=== PATIENT | female | born 1995 | race Caucasian/White ===

== ENCOUNTER 2020-04-27 22:47 | Emergency (ER) | payer BC ==
[~2020-04-27] VITALS: Ht 162.6 cm; Wt 62.6 kg
[2020-04-27 22:55] VITALS: Ht 162.6 cm; Wt 62.6 kg
[2020-04-27 23:49] VITALS: BP 113/71
== END 2020-04-27 23:49 | disposition home or self-care (01) ==
LOC: ED 22:47
DX: T20.06XA Burn of unspecified degree of forehead and cheek, initial encounter (principal); Y92.89 Other specified places as the place of occurrence of the external cause